=== PATIENT | female | born 1995 | race Caucasian/White ===

== ENCOUNTER 2021-03-17 10:15 | Emergency (ER) | payer OTHER ==
[2021-03-17 11:42] LABS: HEMOGLOBIN 14.9 gm/dl (12.3-15.3); RED BLOOD COUNT 4.75 M/UL (4.00-5.10); WHITE BLOOD COUNT 13.9 K/UL (4.5-11.0)
[2021-03-17 12:05] LABS: BUN/CREATININE RATIO 11 (0-10)
[2021-03-17] MEDS ORDERED: METRONIDAZOLE500 MG PO (16:10)
[2021-03-17] MEDS ORDERED: CIPRO500 MG PO (16:10)
[2021-03-17] MEDS ORDERED: PROTONIX40 MG PO (16:10)
[2021-03-17] MEDS ORDERED: ONDANSETRON ODT4 MG SL (16:10)
== END 2021-03-17 17:25 | disposition home or self-care (01) ==
LOC: ER1 10:15
PROVIDERS: Physician Assistant
DX: K52.9 Noninfective gastroenteritis and colitis, unspecified (principal); E86.0 Dehydration; F41.9 Anxiety disorder, unspecified; Z88.0 Allergy status to penicillin
CPT/HCPCS: 80053; 80307; 81001; 83690; 84703; 85025; 87086; 93005; 96374; 96375; 96376; 99284; C9113; J2060; J2405; Q9967